=== PATIENT | female | born 1985 | race Caucasian/White ===

== ENCOUNTER 2024-09-15 19:32 | Outpatient (CLI) | payer BC, SELFPAY | END 2024-09-15 19:33 | disposition home or self-care (01) | PROVIDERS: Visit Provider Nurse Practitioner Family | DX: R51.9 Headache, unspecified (principal) | CPT/HCPCS: 80053; 85651; 86140 ==

== ENCOUNTER 2025-01-11 15:57 | Outpatient (CLI) | payer BC, SELFPAY | END 2025-01-11 15:58 | disposition home or self-care (01) | PROVIDERS: PCP Registered Nurse; Visit Provider Registered Nurse | DX: I10 Essential (primary) hypertension (principal); R53.83 Other fatigue; Z13.0 Encounter for screening for diseases of the blood and blood-forming organs and certain disorders involving the immune mechanism | CPT/HCPCS: 80053; 82728; 84443; 86140 ==